=== PATIENT | male | born 1955 | race Caucasian/White ===

== ENCOUNTER 2018-10-07 11:55 | Inpatient (IN) | payer BC ==
[2018-10-07] MEDS ORDERED: ACETAMINOPHEN 325 MG TAB PO ONE (12:16)
[2018-10-07] MEDS ORDERED: 0.9 % SODIUM CHLORIDE 1,000 ML BAG IV ONE (12:16)
[2018-10-07 12:28] LABS: HEMATOCRIT 46.1 % (42.0-52.0); HEMOGLOBIN 15.6 gm/dl (14.0-18.0); MEAN CELL VOLUME 82.6 fl (81-97); MEAN CORPUSCULAR HGB CONC 33.8 g/dl (32-36); MEAN PLATELET VOLUME 10.1 fl (7.4-10.4); PLATELET COUNT 208 K/uL (130-400); RED BLOOD COUNT 5.58 M/uL (4.40-5.70); RED CELL DISTRIBUTION WIDTH 12.9 % (11.5-14.5); URINE BILIRUBIN NEGATIVE (NEGATIVE); URINE BLOOD MODERATE (NEGATIVE); URINE COLOR YELLOW; URINE GLUCOSE (UA) NEGATIVE (NEGATIVE); URINE KETONE NEGATIVE (NEGATIVE); URINE LEUKOCYTE ESTERASE MODERATE (NEGATIVE); URINE NITRITE POSITIVE (NEGATIVE); URINE PROTEIN TRACE (NEGATIVE); URINE UROBILINOGEN 0.2 E.U./dL (0.20 - 1.00); WHITE BLOOD COUNT W/O DIFF 11.6 K/uL (4.2-12.2)
--- NOTE | 2018-10-07 12:29 | Emergency Department Record ---
History of Present Illness - General Chief Complaint: Fever Stated Complaint: FEVER/PAIN WITH URINATION Time Seen by Provider: 10/07/18 12:09 Source: Patient Mode of Arrival: Ambulatory Limitations: No limitations - History of Present Illness Initial Comments: The patient is here due to a 24 hour hx of frequent urination, body aches, chills, dysuria, and fever. He has a hx of a kidney infection and it has presented similar to this in the past. There has been no nausea, vomiting, diarrhea, or GIRON. MD Complaint: Fever, Malaise, Weakness Onset/Timin -: Days(s) Maximum Temperature: 101.2 F Temperature Source: Oral Associated Symptoms: Chills, Dysuria, Nausea - Related Data Home Medications Medication Instructions Recorded Confirmed Last Taken Atorvastatin Calcium [Lipitor] 10 mg PO DAILY 10/07/18 10/07/18 10/06/18 Allergies Allergy/AdvReac Type Severity Reaction Status Date / Time codeine Allergy Intermediate HIVES Unverified 10/07/18 11:34 sulfamethoxazole Allergy Intermediate HIVES Unverified 10/07/18 11:34 [From Bactrim] trimethoprim [From Bactrim] Allergy Intermediate HIVES Unverified 10/07/18 11:34 Travel Screening - Travel/Exposure Within Last 30 Days Have you traveled within the last 30 days?: No - Travel/Exposure Within Last Year Have you traveled outside the [place] in the last year?: Yes Location Detail:: [place] - Additonal Travel Details Have you been exposed to anyone with a communicable illness?: No - Travel Symptoms Symptom Screening: None Review of Systems Constitutional: Reports: Chills, Fever, Malaise Eyes: Denies: Eye discharge ENT: Denies: Congestion Respiratory: Denies: Cough, Dyspnea Cardiovascular: Denies: Arrhythmia, Chest pain Endocrine: Reports: Fatigue Gastrointestinal: Denies: Nausea Genitourinary: Reports: Dysuria Musculoskeletal: Denies: Arthralgia Skin: Denies: Bruising Past Medical History - SOCIAL HISTORY Smoking Status: Never smoker Alcohol Use: None Drug Use: None - RESPIRATORY Hx Respiratory Disorders: Yes Hx Pneumonia: Yes - CARDIOVASCULAR Hx Cardio Disorders: Yes Hx Hypertension: Yes Comment:: High cholestrol - NEURO Hx Neuro Disorders: No - GI Hx GI Disorders: No - Hx Genitourinary Disorders: Yes Comment:: kidney infection - ENDOCRINE Hx Endocrine Disorders: No - MUSCULOSKELETAL Hx Musculoskeletal Disorders: No Hx Back Injury: Yes - PSYCH Hx Psych Problems: No - HEMATOLOGY/ONCOLOGY Hx Hematology/Oncology Disorders: No Family Medical History Any Significant Family History?: No Hx Heart Disease: Grandparents Hx HTN: Grandparents Physical Exam - General General Appearance: Alert, Oriented x3, Cooperative, No acute distress - Head Head exam: Atraumatic, Normocephalic, Normal inspection - Eye Eye exam: Normal appearance, PERRL, EOMI - ENT Throat exam: Normal inspection. negative: Tonsillar erythema, Tonsillar exudate - Neck Neck exam: Normal inspection, Full ROM. negative: Tenderness - Respiratory Respiratory exam: Normal lung sounds bilaterally. negative: Respiratory distress - Cardiovascular Cardiovascular Exam: Regular rate, Normal rhythm, Normal heart sounds - GI/Abdominal GI/Abdominal exam: Soft, Normal bowel sounds. negative: Rebound, Rigid, Tenderness - Extremities Extremities exam: Normal inspection, Full ROM, Normal capillary refill. negative: Tenderness - Back Back exam: Denies: CVA tenderness (R), CVA tenderness (L) - Neurological Neurological exam: Alert. negative: Motor sensory deficit - Psychiatric Psychiatric exam: negative: Anxious Course Vital Signs 10/07/18 11:59 Temperature 99.7 F H Pulse Rate 115 H Respiratory 18 Rate Blood Pressure 169/99 Pulse Ox 97 - Reevaluation(s) Reevaluation #1: The patient is doing OK at this time but his temp did go up to 101.0. He is feeling better but is still having intermittent chills. Due to the hx of sepsis I did recommend hospital admission overnight at least and the patient did agree. We will keep him on IV Levaquin and fluids and recheck labs in the AM. I did discuss the case with Daxa ([employer]) and she does agree to the admission. 10/07/18 13:20 Medical Decision Making - Data Complexity MDM Data: Labs Ordered and/or Reviewed - Lab Data Result diagrams: 10/07/18 12:05 10/07/18 12:05 Disposition Disposition: Admit Clinical Impression: Acute pyelonephritis, Bacteremia Disposition: Still a Patient at [facility] Decision to Admit: Admit from ER Decision to Admit Date: 10/07/18 Decision to Admit Time: 13:22 Condition: (2) Stable Time of Disposition: 13:22 Quality - Quality Measures Quality Measures: N/A - Blood Pressure Screening View Details: Yes Does Patient Have Any of the Following: Active Dx of HTN Blood Pressure Classification: Hypertensive Reading Systolic Measurement: 169 Diastolic Measurement: 99 Screening for High Blood Pressure: Patient Exclusion, Hx of HTN [[id number]]
[2018-10-07 12:34] LABS: URINE APPEARANCE CLOUDY
[2018-10-07 12:35] LABS: URINE BACTERIA 4+; URINE EPITHELIAL CELLS 0 - 2 (FEW); URINE RBC 36 - 50 (NONE SEEN); URINE WBC >50 (0-2/hpf)
[2018-10-07] MEDS ORDERED: CEFTRIAXONE SODIUM 1 GM in 0.9 % SODIUM CHLORIDE 100ML 100 ML IVPB ONE (12:39)
[2018-10-07 12:41] LABS: BLOOD UREA NITROGEN 21 mg/dL (8-23); EST GLOMERULAR FILTRATION RATE > 60 mL/min
[2018-10-07 12:43] LABS: GLUCOSE,RANDOM 108 mg/dL (74-109)
[2018-10-07 12:46] LABS: C-REACTIVE PROTEIN 1.63 mg/dL (<0.5)
[2018-10-07] MEDS ORDERED: IBUPROFEN 400 MG TABLET PO ONE (12:53)
[2018-10-07] MEDS ORDERED: LEVOFLOXACIN/D5W 750 MG/150 ML BAG IVPB ONE (13:22)
[2018-10-07] MEDS ORDERED: CYCLOBENZAPRINE 10MG TABLET PO PRN (14:48)
[2018-10-07] MEDS: 0.9 % SODIUM CHLORIDE 1000ML 1,000 ML IV PRN (15:12)
[2018-10-07] MEDS: ACETAMINOPHEN 325 MG TAB PO PRN ×2 (16:33→21:22)
--- NOTE | 2018-10-07 17:32 | History & Physical ---
History of Present Illness - Date of Service Date of Service for History & Physical: 10/09/18 - History of Present Illness Admitting Diagnosis: 1. Acute Urosepsis History of Present Illness: 63 yo male presents for UTI and fever. Reports symptoms started wednesday with feeling cold, tired and poor appetite. burning and frequency started and today increased pain, frequency, urgency, and chills. H/O same 2 years ago, no known issues with new sexual partners but reports holding his bladder at work. 10/07/18 Pt presented to [facility] ER for chills, UA positive for UTI. Given 500cc bolus, motrin 400mg, rocephin 1gm and levaquin 750mg IVPB. WBC 11.6, Hgb 15.6, Hct 46.1, Plts 208 NA 138, K 3.7, Cl 98, BUn 21, Cr 1, GFR >60, lactic acid 1.3, Ca 10.5, CRP 1.63 UA positive leuk, nitrite- culture pending BC x2 10/07/18 Pt in no distress, resting in bed comfortably. A&ox4. Skin pwd, reports back pain, freq, urgency, burning, and chills. IVF infusing but pt also encouraged to drink ore fluids. Denies nausea and reports tingling at the tip of penis with urination but pain is tolerable. Denies any new sexual partners, no STI history, no history of prostate issues. No recent UTI issue, last infection was 2 years ago and required inpt hospitalization also. Pt has not seen urology for any concerns. Denies difficulty starting the stream or sensation of not emptying bladder previous to illness. Only concern is having bladder spasms with hold urine during road trips , meetings at work and other situations for holding bladder. Pt made aware that BC and UA culture are pending, will continue Levaquin to treat UTI and possible prostatitis. Pt denies rectal pain at this time. No CVA tenderness, pain is middle line and improved with hot pack. PCP Specialist Travel Screening - Travel/Exposure Within Last 30 Days Have you traveled within the last 30 days?: No - Travel/Exposure Within Last Year Have you traveled outside the [place] in the last year?: Yes Location Detail:: [place] in May - Additonal Travel Details Have you been exposed to anyone with a communicable illness?: No - Travel Symptoms Symptom Screening: None Review of Systems Constitutional: Reports: Chills, Fever, Malaise Eyes: Denies: Eye discharge ENT: Denies: Congestion Respiratory: Denies: Cough, Dyspnea Cardiovascular: Denies: Arrhythmia, Chest pain Endocrine: Reports: Fatigue Gastrointestinal: Denies: Nausea Genitourinary: Reports: Dysuria Musculoskeletal: Denies: Arthralgia Skin: Denies: Bruising Past Medical History - SOCIAL HISTORY Smoking Status: Never smoker Alcohol Use: None Drug Use: None - RESPIRATORY Hx Respiratory Disorders: Yes Hx Pneumonia: Yes - CARDIOVASCULAR Hx Cardio Disorders: Yes Hx Hypertension: Yes Comment:: High cholestrol - NEURO Hx Neuro Disorders: No - GI Hx GI Disorders: No - Hx Genitourinary Disorders: Yes Comment:: kidney infection - ENDOCRINE Hx Endocrine Disorders: No - MUSCULOSKELETAL Hx Musculoskeletal Disorders: No Hx Back Injury: Yes - PSYCH Hx Psych Problems: No - HEMATOLOGY/ONCOLOGY Hx Hematology/Oncology Disorders: No Family Medical History Any Significant Family History?: No Hx Heart Disease: Grandparents Hx HTN: Grandparents H&P Meds/Allergies - Allergies Allergies: Allergies Allergy/AdvReac Type Severity Reaction Status Date / Time codeine Allergy Intermediate HIVES Unverified 10/07/18 11:34 sulfamethoxazole Allergy Intermediate HIVES Unverified 10/07/18 11:34 [From Bactrim] trimethoprim [From Bactrim] Allergy Intermediate HIVES Unverified 10/07/18 11:34 - Home Medications Home Medications Medication Instructions Recorded Confirmed Last Taken Atorvastatin Calcium [Lipitor] 10 mg PO DAILY 10/07/18 10/07/18 10/06/18 - Active Medications Active Medications: Current Medications Acetaminophen (Tylenol 325mg) 650 mg PO Q4H PRN PRN Reason: PAIN - MILD(1-4)/FEVER Last Admin: 10/07/18 16:33 Dose: 650 mg Aspirin (Ecotrin (Ec)) 81 mg PO QHS [facility] Atenolol (Tenormin) 50 mg PO DAILY [facility] Atorvastatin Calcium (Lipitor) 10 mg PO DAILY [facility] Cyclobenzaprine HCl (Flexeril) 5 mg PO BID PRN PRN Reason: MUSCLE SPASM Last Admin: 10/07/18 16:33 Dose: 5 mg Gemfibrozil (Lopid) 600 mg PO BID [facility] Sodium Chloride () 1,000 mls @ 100 mls/hr IV .Q10H PRN PRN Reason: LARGE VOLUME IV Last Admin: 10/07/18 15:12 Dose: 100 mls/hr Levofloxacin/Dextrose (Levaquin 750mg Ivpb) 750 mg in 150 mls @ 125 mls/hr IVPB Q24H [facility] Stop: 10/13/18 13:31 Ibuprofen (Motrin 600mg) 600 mg PO Q8H PRN PRN Reason: FEVER Physical Exam - Vital Signs Vital Signs: Vital Signs - Last 24 Hrs Temp Pulse Pulse Resp BP BP Pulse Ox 10/07/18 16:47 100.2 F H 10/07/18 14:15 16 10/07/18 14:10 100.6 F H 97 H 101 H 18 110/75 151/83 96 10/07/18 13:39 99.8 F H 92 H 18 110/75 95 10/07/18 12:49 101.1 F H 100 H 16 119/83 97 10/07/18 11:59 99.7 F H 115 H 18 169/99 97 - General General Appearance: Alert, Oriented x3, Cooperative, No acute distress Limitations: No limitations - Head Head exam: Atraumatic, Normocephalic, Normal inspection - Eye Eye exam: Normal appearance, PERRL, EOMI - ENT ENT exam: Mucous membranes moist Ear exam: Normal external inspection Mouth exam: Normal external inspection Throat exam: Normal inspection. negative: Tonsillar erythema, Tonsillar exudate - Neck Neck exam: Normal inspection, Full ROM. negative: Tenderness - Respiratory Respiratory exam: Normal lung sounds bilaterally. negative: Respiratory distress - Cardiovascular Cardiovascular Exam: Regular rate, Normal rhythm, Normal heart sounds Peripheral Pulses: 3+: Dorsalis Pedis (R), Dorsalis Pedis (L) - GI/Abdominal GI/Abdominal exam: Soft, Normal bowel sounds. negative: Rebound, Rigid, Tenderness - Rectal Rectal exam: Deferred - exam: Deferred - Extremities Extremities exam: Normal inspection, Full ROM, Normal capillary refill. negative: Tenderness - Back Back exam: Denies: CVA tenderness (R), CVA tenderness (L) - Neurological Neurological exam: Alert, Normal gait, Oriented X3. negative: Motor sensory deficit - Psychiatric Psychiatric exam: negative: Anxious - Skin Skin exam: Dry, Normal color, Warm Results - Labs Result Diagrams: 10/08/18 06:00 10/08/18 06:00 Labs Last 24 Hours: Laboratory Results - last 24 hr 10/07/18 10/07/18 10/07/18 12:05 12:05 12:05 WBC 11.6 RBC 5.58 Hgb 15.6 Hct 46.1 MCV 82.6 MCH 28.0 MCHC 33.8 RDW 12.9 Plt Count 208 MPV 10.1 Neutrophils % 86.0 H Eosinophils % Not Reportable Basophils % Not Reportable Lymphocytes 8.0 L Monocytes 6.0 Sodium 138 Potassium 3.7 Chloride 98 Carbon Dioxide 28.0 Anion Gap 12.0 BUN 21 Creatinine 1.0 Estimated GFR > 60 Random Glucose 108 Lactic Acid Calcium 10.5 H C-Reactive Protein 1.63 H Urine Color Yellow Urine Appearance Cloudy Urine pH 6.5 Ur Specific [place] 1.020 Urine Protein Trace H Urine Glucose (UA) Negative Urine Ketones Negative Urine Blood Moderate Urine Nitrite Positive H Urine Bilirubin Negative Urine Urobilinogen 0.2 Ur Leukocyte Esterase Moderate H Urine RBC 36 - 50 Urine WBC >50 Ur Epithelial Cells 0 - 2 Urine Bacteria 4+ 10/07/18 12:05 WBC RBC Hgb Hct MCV MCH MCHC RDW Plt Count MPV Neutrophils % Eosinophils % Basophils % Lymphocytes Monocytes Sodium Potassium Chloride Carbon Dioxide Anion Gap BUN Creatinine Estimated GFR Random Glucose Lactic Acid 1.3 Calcium C-Reactive Protein Urine Color Urine Appearance Urine pH Ur Specific [place] Urine Protein Urine Glucose (UA) Urine Ketones Urine Blood Urine Nitrite Urine Bilirubin Urine Urobilinogen Ur Leukocyte Esterase Urine RBC Urine WBC Ur Epithelial Cells Urine Bacteria VTE H&P Assessment - Risk for VTE Risk for VTE: Yes Risk Level: Low Risk Assessment Date: 10/07/18 Risk Assessment Time: 17:32 VTE Orders Placed or Will Be Placed: Yes Plan - Detailed Diagnosis and Plan (1) UTI (urinary tract infection) Current Visit: Yes Status: Acute Base Code: N39.0 - URINARY TRACT INFECTION , SITE NOT SPECIFIED Comment: 10/07/18 -febrile, fatigued, burning with urination -rocephin 1gm given ER but changed to Levaquin in ER, first dose given -IVF -tylenol, motrin for fever -urine culture pending, BCx2 pending (obtained in ER after rocephin, before levaquin per ER verbal report) 10/08/18 -pt reports some back pain and some pain with urination but it is improving -encouraged to increase PO intake -POC 24 fever free and improved BP for d/c (2) DVT prophylaxis Current Visit: Yes Status: Acute Base Code: [id number] - Comment: 10/08/18 -40 mg lovenox SQ qd (3) Full code status Current Visit: Yes Status: Acute Base Code: Z78.9 - OTHER SPECIFIED HEALTH STATUS Comment: 10/08/18 -full code
[2018-10-07] MEDS: GEMFIBROZIL 600 MG TABLET PO SCH (21:23)
[2018-10-07] MEDS: ASPIRIN 81 MG TABEC PO SCH (21:23)
[2018-10-07] MEDS: IBUPROFEN 600 MG TABLET PO PRN (22:43)
[2018-10-08] MEDS: 0.9 % SODIUM CHLORIDE 1000ML 1,000 ML IV PRN ×3 (02:00→22:53)
[2018-10-08] MEDS: ACETAMINOPHEN 325 MG TAB PO PRN ×2 (05:06→14:03)
[2018-10-08 06:08] LABS: BASO % 0.1 % (0-6); EOS % 0.7 % (0-6); GRAN % 75.2 % (47-80); HEMATOCRIT 39.8 % (42.0-52.0); HEMOGLOBIN 13.3 gm/dl (14.0-18.0); LYMPH % 12.3 % (16-45); MEAN CELL VOLUME 84.1 fl (81-97); MEAN CORPUSCULAR HEMOGLOBIN 28.1 pg (27-33); MEAN CORPUSCULAR HGB CONC 33.4 g/dl (32-36); MONO % 11.7 % (0-9); PLATELET COUNT 169 K/uL (130-400); RED BLOOD COUNT 4.73 M/uL (4.40-5.70); RED CELL DISTRIBUTION WIDTH 12.9 % (11.5-14.5); WHITE BLOOD COUNT W/O DIFF 11.1 K/uL (4.2-12.2)
[2018-10-08 06:18] LABS: BLOOD UREA NITROGEN 17 mg/dL (8-23); CREATININE 0.9 mg/dL (0.7-1.2); EST GLOMERULAR FILTRATION RATE > 60 mL/min; GLUCOSE,RANDOM 110 mg/dL (74-109)
[2018-10-08] MEDS: ATENOLOL 50 MG TABLET PO SCH (10:52)
[2018-10-08] MEDS: ATORVASTATIN 20 MG TABLET PO SCH (10:52)
[2018-10-08] MEDS: ENOXAPARIN 40 MG/0.4 ML SYR SQ SCH (10:54)
[2018-10-08] MEDS: GEMFIBROZIL 600 MG TABLET PO SCH ×2 (10:54→22:55)
--- NOTE | 2018-10-08 12:09 | Physician Progress Note ---
Subjective - Date Date of Physician Progress Note: 10/09/18 - Subjective Subjective Comment: Pt reports feeling better but not good. Still has back pain, freq and urgency but all have been improving. Pt has decreased PO intake and feels fatigued still. Issues with fever in the past 24 hours, blood pressures have been low but pt is asymptomatic of low BP. Holding AM atenolol if low BP through the night. POC d/ c when fever free 24 hours and BP has stablized. Pt being treated for HTN, currently low BP. Suspicion for sepsis but lactic acid was normal, no kidney impairment or change in LOC. Location: Back Severity scale (1-10): 6 Quality: Constant Objective - Vital Signs Vital Signs: Vital Signs - Last 24 Hrs Temp Pulse Pulse Resp BP BP Pulse Ox 10/08/18 10:00 98.2 F 82 16 105/52 95 10/08/18 08:30 67 18 10/08/18 06:00 98.5 F 67 16 97/63 100 10/08/18 01:25 97.4 F L 10/07/18 23:25 100.9 F H 85 20 110/60 97 10/07/18 20:40 100.0 F H 86 18 104/58 96 10/07/18 19:26 100.4 F H 10/07/18 16:47 100.2 F H 10/07/18 14:15 16 10/07/18 14:10 100.6 F H 97 H 101 H 18 110/75 151/83 96 10/07/18 13:39 99.8 F H 92 H 18 110/75 95 10/07/18 12:49 101.1 F H 100 H 16 119/83 97 - General General Appearance: Alert, Oriented x3, Cooperative, No acute distress Limitations: No limitations - Head Head exam: Atraumatic, Normocephalic, Normal inspection - Eye Eye exam: Normal appearance, PERRL, EOMI - ENT ENT exam: Mucous membranes moist Mouth exam: Normal external inspection Throat exam: Normal inspection. negative: Tonsillar erythema, Tonsillar exudate - Neck Neck exam: Normal inspection, Full ROM. negative: Tenderness - Respiratory Respiratory exam: Normal lung sounds bilaterally. negative: Respiratory distress - Cardiovascular Cardiovascular Exam: Regular rate, Normal rhythm, Normal heart sounds Peripheral Pulses: 3+: Dorsalis Pedis (R), Dorsalis Pedis (L) - GI/Abdominal GI/Abdominal exam: Soft, Normal bowel sounds. negative: Rebound, Rigid, Tenderness - Rectal Rectal exam: Deferred - exam: Deferred - Extremities Extremities exam: Normal inspection, Full ROM, Normal capillary refill. negative: Tenderness - Back Back exam: Denies: CVA tenderness (R), CVA tenderness (L) - Neurological Neurological exam: Alert, Normal gait, Oriented X3. negative: Motor sensory deficit - Psychiatric Psychiatric exam: negative: Anxious - Skin Skin exam: Dry, Normal color, Warm Assessment and Plan - Assessment and Plan (1) UTI (urinary tract infection) Current Visit: Yes Status: Acute Base Code: N39.0 - URINARY TRACT INFECTION , SITE NOT SPECIFIED Comment: 10/07/18 -febrile, fatigued, burning with urination -rocephin 1gm given ER but changed to Levaquin in ER, first dose given -IVF -tylenol, motrin for fever -urine culture pending, BCx2 pending (obtained in ER after rocephin, before levaquin per ER verbal report) 10/08/18 -pt reports some back pain and some pain with urination but it is improving -encouraged to increase PO intake -POC 24 fever free and improved BP for d/c (2) DVT prophylaxis Current Visit: Yes Status: Acute Base Code: [id number] - Comment: 10/08/18 -40 mg lovenox SQ qd (3) Full code status Current Visit: Yes Status: Acute Base Code: Z78.9 - OTHER SPECIFIED HEALTH STATUS Comment: 10/08/18 -full code Results - Labs Result Diagrams: 10/08/18 06:00 10/08/18 06:00 Labs Last 24 Hours: Laboratory Results - last 24 hr 10/07/18 10/07/18 10/07/18 12:05 12:05 12:05 WBC 11.6 RBC 5.58 Hgb 15.6 Hct 46.1 MCV 82.6 MCH 28.0 MCHC 33.8 RDW 12.9 Plt Count 208 MPV 10.1 Gran % Neutrophils % 86.0 H Lymphocytes % Monocytes % Eosinophils % Not Reportable Basophils % Not Reportable Lymphocytes 8.0 L Monocytes 6.0 Sodium 138 Potassium 3.7 Chloride 98 Carbon Dioxide 28.0 Anion Gap 12.0 BUN 21 Creatinine 1.0 Estimated GFR > 60 Random Glucose 108 Lactic Acid Calcium 10.5 H C-Reactive Protein 1.63 H Urine Color Yellow Urine Appearance Cloudy Urine pH 6.5 Ur Specific [place] 1.020 Urine Protein Trace H Urine Glucose (UA) Negative Urine Ketones Negative Urine Blood Moderate Urine Nitrite Positive H Urine Bilirubin Negative Urine Urobilinogen 0.2 Ur Leukocyte Esterase Moderate H Urine RBC 36 - 50 Urine WBC >50 Ur Epithelial Cells 0 - 2 Urine Bacteria 4+ 10/07/18 10/08/18 10/08/18 12:05 06:00 06:00 WBC 11.1 RBC 4.73 Hgb 13.3 L Hct 39.8 L MCV 84.1 MCH 28.1 MCHC 33.4 RDW 12.9 Plt Count 169 MPV 10.0 Gran % 75.2 Neutrophils % Lymphocytes % 12.3 L Monocytes % 11.7 H Eosinophils % 0.7 Basophils % 0.1 Lymphocytes Monocytes Sodium 140 Potassium 3.6 Chloride 106 Carbon Dioxide 25.0 Anion Gap 9.0 BUN 17 Creatinine 0.9 Estimated GFR > 60 Random Glucose 110 H Lactic Acid 1.3 Calcium 9.3 C-Reactive Protein Urine Color Urine Appearance Urine pH Ur Specific [place] Urine Protein Urine Glucose (UA) Urine Ketones Urine Blood Urine Nitrite Urine Bilirubin Urine Urobilinogen Ur Leukocyte Esterase Urine RBC Urine WBC Ur Epithelial Cells Urine Bacteria DVT/PE Assessment - Risk for VTE Risk for VTE: No Risk Level: Low Risk Assessment Date: 10/07/18 Risk Assessment Time: 17:32 VTE Orders Placed or Will Be Placed: Yes - Active Medicaitons Current Medications: Current Medications Acetaminophen (Tylenol 325mg) 650 mg PO Q4H PRN PRN Reason: PAIN - MILD(1-4)/FEVER Last Admin: 10/08/18 05:06 Dose: 650 mg Aspirin (Ecotrin (Ec)) 81 mg PO QHS [facility] Last Admin: 10/07/18 21:23 Dose: 81 mg Atenolol (Tenormin) 50 mg PO DAILY [facility] Last Admin: 10/08/18 10:52 Dose: 50 mg Atorvastatin Calcium (Lipitor) 10 mg PO DAILY [facility] Last Admin: 10/08/18 10:52 Dose: 10 mg Cyclobenzaprine HCl (Flexeril) 5 mg PO BID PRN PRN Reason: MUSCLE SPASM Last Admin: 10/07/18 16:33 Dose: 5 mg Enoxaparin Sodium (Lovenox) 40 mg SQ DAILY [facility] Last Admin: 10/08/18 10:54 Dose: 40 mg Gemfibrozil (Lopid) 600 mg PO BID [facility] Last Admin: 10/08/18 10:54 Dose: 600 mg Sodium Chloride () 1,000 mls @ 100 mls/hr IV .Q10H PRN PRN Reason: LARGE VOLUME IV Last Admin: 10/08/18 02:00 Dose: 100 mls/hr Levofloxacin/Dextrose (Levaquin 750mg Ivpb) 750 mg in 150 mls @ 125 mls/hr IVPB Q24H [facility] Stop: 10/13/18 13:31 Ibuprofen (Motrin 600mg) 600 mg PO Q8H PRN PRN Reason: FEVER Last Admin: 10/07/18 22:43 Dose: 600 mg AMI Plan - Labs Result Diagrams: 10/08/18 06:00 10/08/18 06:00
[2018-10-08] MEDS: LEVOFLOXACIN/D5W 750 MG/150 ML BAG IVPB SCH (13:58)
[2018-10-08] MEDS: IBUPROFEN 600 MG TABLET PO PRN (22:54)
[2018-10-08] MEDS: ASPIRIN 81 MG TABEC PO SCH (22:55)
[2018-10-09] MEDS: 0.9 % SODIUM CHLORIDE 1000ML 1,000 ML IV PRN (09:28)
--- NOTE | 2018-10-09 09:58 | Physician Progress Note ---
Subjective - Date Date of Physician Progress Note: 10/09/18 - Subjective Subjective Comment: 10/09/18 pt was to be 24 fever free for d/c, yesterday had temp 100.9 and reported chills through the night. No d/c today, needs to be fever free 24 hours. Urine culture still pending. Low concern for MDR, continue current treatment, re- assess in am. Pt is aware and accepts POC BP has low this AM, holding atenolol tomorrow if BP continues to be below SBP 100. IVF cont, pt needsto increase PO intake. Location: Abdomen Severity scale (1-10): 3 Quality: Burning Consistency: Intermittent Objective - Vital Signs Vital Signs: Vital Signs - Last 24 Hrs Temp Pulse Resp BP Pulse Ox 10/09/18 08:55 58 L 18 10/09/18 04:26 97.7 F 58 L 18 120/83 97 10/08/18 18:00 98.7 F 85 18 109/67 95 10/08/18 14:00 100.1 F H 79 18 106/47 93 L 10/08/18 10:00 98.2 F 82 16 105/52 95 - General General Appearance: Alert, Oriented x3, Cooperative, No acute distress Limitations: No limitations - Head Head exam: Atraumatic, Normocephalic, Normal inspection - Eye Eye exam: Normal appearance, PERRL, EOMI - ENT ENT exam: Mucous membranes moist Mouth exam: Normal external inspection Throat exam: Normal inspection. negative: Tonsillar erythema, Tonsillar exudate - Neck Neck exam: Normal inspection, Full ROM. negative: Tenderness - Respiratory Respiratory exam: Normal lung sounds bilaterally. negative: Respiratory distress - Cardiovascular Cardiovascular Exam: Regular rate, Normal rhythm, Normal heart sounds Peripheral Pulses: 3+: Dorsalis Pedis (R), Dorsalis Pedis (L) - GI/Abdominal GI/Abdominal exam: Soft, Normal bowel sounds. negative: Rebound, Rigid, Tenderness - Rectal Rectal exam: Deferred - exam: Deferred - Extremities Extremities exam: Normal inspection, Full ROM, Normal capillary refill. negative: Tenderness - Back Back exam: Denies: CVA tenderness (R), CVA tenderness (L) - Neurological Neurological exam: Alert, Normal gait, Oriented X3. negative: Motor sensory deficit - Psychiatric Psychiatric exam: negative: Anxious - Skin Skin exam: Dry, Normal color, Warm Assessment and Plan - Assessment and Plan (1) UTI (urinary tract infection) Current Visit: Yes Status: Acute Base Code: N39.0 - URINARY TRACT INFECTION , SITE NOT SPECIFIED Comment: 10/07/18 -febrile, fatigued, burning with urination -rocephin 1gm given ER but changed to Levaquin in ER, first dose given -IVF -tylenol, motrin for fever -urine culture pending, BCx2 pending (obtained in ER after rocephin, before levaquin per ER verbal report) 10/08/18 -pt reports some back pain and some pain with urination but it is improving -encouraged to increase PO intake -POC 24 fever free and improved BP for d/c (2) DVT prophylaxis Current Visit: Yes Status: Acute Base Code: [id number] - Comment: 10/08/18 -40 mg lovenox SQ qd (3) Full code status Current Visit: Yes Status: Acute Base Code: Z78.9 - OTHER SPECIFIED HEALTH STATUS Comment: 10/08/18 -full code Results - Labs Result Diagrams: 10/08/18 06:00 10/08/18 06:00 DVT/PE Assessment - Risk for VTE Risk for VTE: No Risk Level: Low Risk Assessment Date: 10/07/18 Risk Assessment Time: 17:32 VTE Orders Placed or Will Be Placed: Yes - Active Medicaitons Current Medications: Current Medications Acetaminophen (Tylenol 325mg) 650 mg PO Q4H PRN PRN Reason: PAIN - MILD(1-4)/FEVER Last Admin: 10/08/18 14:03 Dose: 650 mg Aspirin (Ecotrin (Ec)) 81 mg PO QHS [facility] Last Admin: 10/08/18 22:55 Dose: 81 mg Atenolol (Tenormin) 50 mg PO DAILY [facility] Last Admin: 10/08/18 10:52 Dose: 50 mg Atorvastatin Calcium (Lipitor) 10 mg PO DAILY [facility] Last Admin: 10/08/18 10:52 Dose: 10 mg Cyclobenzaprine HCl (Flexeril) 5 mg PO BID PRN PRN Reason: MUSCLE SPASM Last Admin: 10/07/18 16:33 Dose: 5 mg Enoxaparin Sodium (Lovenox) 40 mg SQ DAILY [facility] Last Admin: 10/08/18 10:54 Dose: 40 mg Gemfibrozil (Lopid) 600 mg PO BID [place]O Last Admin: 10/08/18 22:55 Dose: 600 mg Sodium Chloride () 1,000 mls @ 100 mls/hr IV .Q10H PRN PRN Reason: LARGE VOLUME IV Last Admin: 10/09/18 09:28 Dose: 100 mls/hr Levofloxacin/Dextrose (Levaquin 750mg Ivpb) 750 mg in 150 mls @ 125 mls/hr IVPB Q24H [place]OLITO Stop: 10/13/18 13:31 Last Infusion: 10/08/18 15:45 Dose: Infused Ibuprofen (Motrin 600mg) 600 mg PO Q8H PRN PRN Reason: FEVER Last Admin: 10/08/18 22:54 Dose: 600 mg AMI Plan - Labs Result Diagrams: 10/08/18 06:00 10/08/18 06:00
[2018-10-09] MEDS ORDERED: PHENAZOPYRIDINE HCL 95 MG TABLET PO ONE (10:43)
[2018-10-09] MEDS: GEMFIBROZIL 600 MG TABLET PO SCH ×2 (11:29→22:38)
[2018-10-09] MEDS: ATENOLOL 50 MG TABLET PO SCH (11:29)
[2018-10-09] MEDS: ATORVASTATIN 20 MG TABLET PO SCH (11:30)
[2018-10-09] MEDS: ENOXAPARIN 40 MG/0.4 ML SYR SQ SCH (11:31)
[2018-10-09] MEDS: LEVOFLOXACIN/D5W 750 MG/150 ML BAG IVPB SCH (14:48)
[2018-10-09] MEDS: IBUPROFEN 600 MG TABLET PO PRN (16:53)
[2018-10-09] MEDS: ASPIRIN 81 MG TABEC PO SCH (22:38)
[2018-10-09] MEDS ORDERED: CALCIUM CARBONATE 500 MG TAB.CHEW PO PRN (22:47)
[2018-10-10] MEDS: ACETAMINOPHEN 325 MG TAB PO PRN (07:52)
[2018-10-10] MEDS: ATENOLOL 50 MG TABLET PO SCH ×2 (07:52→10:55)
[2018-10-10] MEDS: TAMSULOSIN HCL 0.4 MG CAP.ER.24H PO SCH ×2 (08:12→10:55)
--- NOTE | 2018-10-10 08:37 | Discharge Summary ---
Providers Discharge Summary Date: 10/10/18 Date of admission: 10/07/18 13:43 Expected Date of Discharge: 10/10/18 Attending physician: CARMINE GUNTER Primary care physician: NING LAUREN M.D. Physical Exam - Vital Signs Vital Signs: Vital Signs - Last 24 Hrs Temp Pulse Resp BP BP Pulse Ox 10/10/18 06:00 98.0 F 70 18 145/83 97 10/09/18 20:00 98.2 F 70 18 104/69 96 10/09/18 18:00 98.3 F 69 18 130/69 96 10/09/18 17:56 97.7 F 110/75 10/09/18 14:00 97.7 F 64 16 123/55 96 10/09/18 10:00 97.6 F 74 16 142/79 98 10/09/18 08:55 58 L 18 - General General Appearance: Alert, Oriented x3, Cooperative, No acute distress Limitations: No limitations - Head Head exam: Atraumatic, Normocephalic, Normal inspection - Eye Eye exam: Normal appearance, PERRL, EOMI - ENT ENT exam: Mucous membranes moist Ear exam: Normal external inspection Mouth exam: Normal external inspection Throat exam: Normal inspection. negative: Tonsillar erythema, Tonsillar exudate - Neck Neck exam: Normal inspection, Full ROM. negative: Tenderness - Respiratory Respiratory exam: Normal lung sounds bilaterally. negative: Respiratory distress - Cardiovascular Cardiovascular Exam: Regular rate, Normal rhythm, Normal heart sounds Peripheral Pulses: 3+: Dorsalis Pedis (R), Dorsalis Pedis (L) - GI/Abdominal GI/Abdominal exam: Soft, Normal bowel sounds. negative: Rebound, Rigid, Tenderness - Rectal Rectal exam: Deferred - exam: Deferred - Extremities Extremities exam: Normal inspection, Full ROM, Normal capillary refill. negative: Tenderness - Back Back exam: Denies: CVA tenderness (R), CVA tenderness (L) - Neurological Neurological exam: Alert, Normal gait, Oriented X3. negative: Motor sensory deficit - Psychiatric Psychiatric exam: negative: Anxious - Skin Skin exam: Dry, Normal color, Warm Hospitalization - Hospitalization Admission Diagnosis: 1. Acute Urosepsis - Problem List/Discharge Diagnosis (1) UTI (urinary tract infection) Current Visit: Yes Status: Acute Base Code: N39.0 - URINARY TRACT INFECTION , SITE NOT SPECIFIED Comment: 10/07/18 -febrile, fatigued, burning with urination -rocephin 1gm given ER but changed to Levaquin in ER, first dose given -IVF -tylenol, motrin for fever -urine culture pending, BCx2 pending (obtained in ER after rocephin, before levaquin per ER verbal report) 10/08/18 -pt reports some back pain and some pain with urination but it is improving -encouraged to increase PO intake -POC 24 fever free and improved BP for d/c 10/09/18 -pt had fever at 2pm, child and sweats at night, no d/c today 10/10/18 -Pt reports no chills, no fever, no fatigue. States burning has impoved but now has to push more forcefully to urinate. Start flomax today. HTN noted this AM, atenolol given early. Pt to f/u with PCP 1 week, will continue Levaquin, flomax outpt -continue increased PO intake (2) DVT prophylaxis Current Visit: Yes Status: Acute Base Code: [id number] - Comment: 10/10/18 -40 mg lovenox SQ qd -no meds d/c, return to regular activity (3) Full code status Current Visit: Yes Status: Acute Base Code: Z78.9 - OTHER SPECIFIED HEALTH STATUS Comment: 10/10/18 -full code - Hospitalization Course Disposition: Home, Self-Care Hospital Course: 63 yo male presents for UTI and fever. Reports symptoms started wednesday with feeling cold, tired and poor appetite. burning and frequency started and today increased pain, frequency, urgency, and chills. H/O same 2 years ago, no known issues with new sexual partners but reports holding his bladder at work. 10/07/18 Pt presented to [facility] ER for chills, UA positive for UTI. Given 500cc bolus, motrin 400mg, rocephin 1gm and levaquin 750mg IVPB. WBC 11.6, Hgb 15.6, Hct 46.1, Plts 208 NA 138, K 3.7, Cl 98, BUn 21, Cr 1, GFR >60, lactic acid 1.3, Ca 10.5, CRP 1.63 UA positive leuk, nitrite- culture pending BC x2 10/07/18 Pt in no distress, resting in bed comfortably. A&ox4. Skin pwd, reports back pain, freq, urgency, burning, and chills. IVF infusing but pt also encouraged to drink ore fluids. Denies nausea and reports tingling at the tip of penis with urination but pain is tolerable. Denies any new sexual partners, no STI history, no history of prostate issues. No recent UTI issue, last infection was 2 years ago and required inpt hospitalization also. Pt has not seen urology for any concerns. Denies difficulty starting the stream or sensation of not emptying bladder previous to illness. Only concern is having bladder spasms with hold urine during road trips , meetings at work and other situations for holding bladder. Pt made aware that BC and UA culture are pending, will continue Levaquin to treat UTI and possible prostatitis. Pt denies rectal pain at this time. No CVA tenderness, pain is middle line and improved with hot pack. PCP Specialist Abnormal Labs: Abnormal Lab Results 10/07/18 10/07/18 10/07/18 Range/Units 12:05 12:05 12:05 Hgb (14.0-18.0) gm/dl Hct (42.0-52.0) % Neutrophils % 86.0 H (47-80) % Lymphocytes % (16-45) % Monocytes % (0-9) % Lymphocytes 8.0 L (16-45) % Random Glucose (74-109) mg/dL Calcium 10.5 H (8.8-10.2) mg/dL C-Reactive Protein 1.63 H (<0.5) mg/dL Urine Protein Trace H (NEGATIVE) Urine Nitrite Positive H (NEGATIVE) Ur Leukocyte Esterase Moderate H (NEGATIVE) 10/08/18 10/08/18 Range/Units 06:00 06:00 Hgb 13.3 L (14.0-18.0) gm/dl Hct 39.8 L (42.0-52.0) % Neutrophils % (47-80) % Lymphocytes % 12.3 L (16-45) % Monocytes % 11.7 H (0-9) % Lymphocytes (16-45) % Random Glucose 110 H (74-109) mg/dL Calcium (8.8-10.2) mg/dL C-Reactive Protein (<0.5) mg/dL Urine Protein (NEGATIVE) Urine Nitrite (NEGATIVE) Ur Leukocyte Esterase (NEGATIVE) Condition at Discharge: (2) Stable Discharge Diagnosis: Complicated UTI Discharge Medications - Discharge Medications Prescriptions: Levofloxacin [Levaquin] 750 mg PO DAILY 5 Days #5 tablet Tamsulosin HCl [Flomax] 0.4 mg PO DAILY #14 cap.er.24h Home Medications: Ambulatory Orders Aspirin [Adult Low Dose Aspirin EC] 81 mg PO QHS 12/05/15 [Last Taken 10/06/18] Atenolol 50 mg PO DAILY 12/05/15 [Last Taken 10/06/18] Gemfibrozil 600 mg PO BID 12/05/15 [Last Taken 10/06/18] Atorvastatin Calcium [Lipitor] 10 mg PO DAILY 10/07/18 [Last Taken 10/06/18] Levofloxacin [Levaquin] 750 mg PO DAILY 5 Days #5 tablet 10/10/18 [Last Taken Unknown] Tamsulosin HCl [Flomax] 0.4 mg PO DAILY #14 cap.er.24h 10/10/18 [Last Taken Unknown] Discharge Plan - Discharge Instructions Activity at Discharge: Increase Activity as Tolerated Diet at Discharge: Regular Diet Instructions: Kidney Infection (ED) Additional Instructions: Follow up with PCP in 1 week Continue Levaquin 750mg once daily for 5 more days. Seek medical attention if you have a return of fever, chills, weakness. Starting Flomax related to your difficulty urinating. It is possible that your prostate is irritated with the infection but this should be evaluated after the infection has resolved. Flomax has the potential for low blood pressure, you can stop this if you feel dizzy, lightheaded. Your early symptoms were weakness, poor appetite, and being cold. If this happens in the future, get your urine tested early with these signals. Continue to have good oral intake, DO NOT HOLD YOUR BLADDER. Quality Measures - Quality Measures Quality Measures: Documentation of Current Medications in Medical Record, Screening for High Blood Pressure and F/U Documented - Current Medications Quality Measure: Measure #130: Documentation of Current Medications Documentation of Current Medications: <Current Medications Documented/Reviewed> [[id number]] - Blood Pressure Screening Quality Measure: Screening for High Blood Pressure and Follow-Up Documented Does Patient Have Any of the Following: Active Dx of HTN Blood Pressure Classification: Normal BP Reading Systolic Measurement: 110 Diastolic Measurement: 75 Screening for High Blood Pressure: Patient Exclusion, Hx of HTN [[id number]] - Elder Abuse Suspicion Index EASI Reference Information: Mack MCPHERSON, Mia C, Racquel D, Jong Ibarra.Development and validation of a tool to assist physicians identification of elder abuse: The Elder Abuse Suspicion Index (EASI ). Journal of Elder Abuse and Neglect, 2008; 20 (3): 276-300.
[2018-10-10] MEDS: ENOXAPARIN 40 MG/0.4 ML SYR SQ SCH (09:21)
[2018-10-10] MEDS: GEMFIBROZIL 600 MG TABLET PO SCH (09:22)
[2018-10-10] MEDS: ATORVASTATIN 20 MG TABLET PO SCH (09:22)
== END 2018-10-10 12:40 | disposition home or self-care (01) | DRG 872 ==
LOC: ER 11:55 → OBSVTOIN 13:43 → MEDSURG 13:43
PROVIDERS: ADMIT Internal Medicine; ATTEND Internal Medicine
DX: R78.81 Bacteremia (principal); R50.9 Fever, unspecified; R30.9 Painful micturition, unspecified; I10 Essential (primary) hypertension; E78.00 Pure hypercholesterolemia, unspecified; Z86.19 Personal history of other infectious and parasitic diseases
CPT/HCPCS: 80048; 81001; 83605; 85025; 85027; 86140; 96365; 96375; 99223; 99239; 99285; J1650; J1956; J7030